=== PATIENT | male | born 1970 | race Caucasian/White ===

== ENCOUNTER 2023-02-05 05:51 | Day surgery (SDC) | payer OTHER ==
[~2023-02-05] VITALS: Ht 185.4 cm; Wt 132.8 kg
[~2023-02-05 05:51] MED LIST: CETI5; Prinivil10 MG PO; ROSU5 PO; SILD25T PO
--- NOTE | 2023-02-05 07:02 | NUR ---
02/05/23 [address] COVARRUBIAS, SEE ANESTHESIA RECORDS.
[2023-02-05 07:06] VITALS: BP 133/91
[2023-02-05 08:04] VITALS: BP 129/77
--- NOTE | 2023-02-05 08:06 | NUR ---
DR SANCHEZ AT BEDSIDE SHARING RESULTS OF EXAM AND PATIENT EDUCATION.
[2023-02-05 08:15] VITALS: BP 138/88
--- NOTE | 2023-02-05 08:35 | NUR ---
[id number] Discharge instructions reviewed with patient. Patient verbalizes understanding. Copy given to patient to take home. VSS. PATIENT DENIES PAIN OR C/O. AT BEDSIDE. PLAN FOR TO DRIVE HOME. GAIT STEADY. TOLERATING PO FLUID.
== END 2023-02-05 08:31 | disposition home or self-care (01) ==
LOC: ORSCMMR 05:51 → ORD 07:30 → ORSCMMR 07:30
PROVIDERS: Surgery
PROC: 0DJD8ZZ Inspection of Lower Intestinal Tract, Via Natural or Artificial Opening Endoscopic (ICD-10-PCS; principal; 2023-02-05 07:30)
DX: Z12.11 Encounter for screening for malignant neoplasm of colon (principal); K57.30 Diverticulosis of large intestine without perforation or abscess without bleeding; G47.33 Obstructive sleep apnea (adult) (pediatric); Z85.6 Personal history of leukemia; I10 Essential (primary) hypertension; E78.5 Hyperlipidemia, unspecified; E78.1 Pure hyperglyceridemia; Z79.899 Other long term (current) drug therapy
CPT/HCPCS: J2704; J7120